=== PATIENT | female | born 1940 | race Caucasian/White ===

== ENCOUNTER → 2017-11-28 09:55 | Outpatient (CLI) | payer MEDICARE, SELFPAY ==
--- NOTE | 2017-11-28 10:06 | XR_ITS ---
XR KUB HISTORY: ITS.REASON: KIDNEY STONES ORDERING PHYSICIAN: Manohar Oliva MD PATIENT AGE: 77 years COMPARISON: 05/29/2017 FINDINGS: There is a cluster of stones along the lower pole the right kidney. The largest stone measures approximately 4 mm . No obvious ureteral calculi. Nonspecific bowel gas pattern. Mild lumbar scoliosis convex right. IMPRESSION: No change right nephrolithiasis
== END ==
PROVIDERS: PCP Family Medicine; Visit Provider Urology
DX: N20.0 Calculus of kidney (principal)
CPT/HCPCS: 74018

== ENCOUNTER → 2018-05-28 11:05 | Outpatient (CLI) | payer MEDICARE, SELFPAY ==
--- NOTE | 2018-05-28 11:10 | XR_ITS ---
XR KUB HISTORY: ITS.REASON: kidney stones ORDERING PHYSICIAN: Manohar Oliva MD PATIENT AGE: 77 years COMPARISON: 11/28/2017 FINDINGS: Bones are present overlying the lower pole of the right kidney at 3 and 4 mm. These are not significant change. Nonspecific bowel gas pattern. No acute bony anomalies. Mild dextroscoliosis of the lumbar spine. IMPRESSION: No change right nephrolithiasis
== END ==
PROVIDERS: PCP Family Medicine; Visit Provider Urology
DX: N20.0 Calculus of kidney (principal)
CPT/HCPCS: 74018

== ENCOUNTER → 2020-07-30 11:56 | Outpatient (CLI) | payer MEDICARE, SELFPAY ==
--- NOTE | 2020-07-30 12:10 | XR_ITS ---
PROCEDURE: XR KUB CLINICAL INDICATION: kidney stone Follow-up kidney stones COMPARISON: CT ABDPELW/O CT ABD PELVIS W/O CONTRAST from 06/29/2016 CR KUB XR KUB from 05/28/2018 FINDINGS: Multiple small stones are present along the lower pole of the right kidney and measure up to 5 mm. 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 IMPRESSION: Right nephrolithiasis. Dictated by: Ja Sandoval MD 07/30/2020 12:47 Ja Sandoval MD in [place] 07/30/2020 12:47
== END ==
PROVIDERS: PCP Family Medicine; Visit Provider Urology
DX: N20.0 Calculus of kidney (principal)
CPT/HCPCS: 74018